=== PATIENT | male | born 1950 | race Caucasian/White ===

== ENCOUNTER 2018-02-20 06:21 | Day surgery (SDC) | payer MEDICARE, OTHER ==
[2018-02-20] MEDS: Sodium Chloride 0.9% 1,000 ML IV SCH (06:51)
[2018-02-20] MEDS ORDERED: fentaNYL 250 MCG/5 ML SDV ONE ×2 (07:26→08:01)
[2018-02-20] MEDS ORDERED: Ketorolac 60 MG/2 ML SDV ONE (08:03)
[2018-02-20] MEDS ORDERED: Scopolamine 1.5 MG Transdermal Patch ONE (08:22)
[2018-02-20] MEDS: ceFAZolin 2 GM in Sodium Chloride 0.9% 50 ML IV ONE (08:29)
[2018-02-20] MEDS: metroNIDAZOLE/Normal Saline 500 MG in Premix Bag 1 BAG IV ONE (08:29)
[2018-02-20] MEDS: Ropivacaine 43 ML, Dexamethasone 8 MG, EPINEPHrine 0.4 MG, Sodium Chloride 0.9% 34.6 ML NERVRT SCH ×4 (08:31)
[2018-02-20] MEDS: Lidocaine 1% with EPINEPHrine 1:100,000 50 ML MDV ONE (08:43)
[2018-02-20] MEDS: Bupivacaine 0.5% 50 ML MDV ONE (08:43)
[2018-02-20] MEDS ORDERED: Glycopyrrolate 0.2 MG/ML 5 ML MDV ONE (09:00)
[2018-02-20] MEDS ORDERED: Neostigmine Methylsulfate 1 MG/ML 5 ML Syringe ONE (09:00)
[2018-02-20] MEDS ORDERED: Rocuronium 50 MG/5 ML Vial ONE (09:00)
[2018-02-20] MEDS ORDERED: Dexamethasone 4 MG/ML SDV ONE (09:00)
[2018-02-20] MEDS ORDERED: Ondansetron 4 MG/2 ML SDV ONE (09:00)
[2018-02-20] MEDS ORDERED: Propofol 200 MG/20 ML SDV ONE (09:00)
[2018-02-20 10:20] VITALS: BP 151/91
[2018-02-20] MEDS: Acetaminophen/HYDROcodone 325-5 MG Tab PO ONE (10:20)
--- NOTE | 2018-02-20 13:20 | OR ---
DATE OF PROCEDURE: 02/20/2018 PROCEDURE: Transverse abdominoperitoneal plane block. COMPLICATIONS: None. SCRAP WHEELER: None. PREOPERATIVE DIAGNOSIS: Requirement for abdominal surgery. POSTOPERATIVE DIAGNOSIS: Requirement for abdominal surgery. RISKS: Risks, benefits, alternatives, and limitations including, but not limited to infection, bleeding, injury to abdominal structures such as perforation of intestines or blood vessels along with hematoma were explained to the patient. They understand these risks and wished to proceed. PROCEDURE IN DETAIL: The patient was placed in supine position. Using 11 megahertz ultrasound, the right abdomen was prepped first. Between the second and third layers, the correct plane was identified. A test dose was injected after being drawn back to ensure intravascular injection was not noted. Approximately 90% of the solution was then injected under direct ultrasound guidance. The same procedure was performed in the same manner, same fashion, same technique, in the same sequence, and using the same equipment, also under ultrasound guidance. The patient tolerated the procedure well. Flavio Osman MD /[id number]
--- NOTE | 2018-02-20 13:23 | OR ---
DATE OF PROCEDURE: 02/20/2018 PROCEDURE: Total extraperitoneal hernia repair, right. COMPLICATIONS: None. BENCH ASSEMBLER BATTERY: None. ANESTHESIA: TAP block/general. RISKS: Risks, benefits, alternatives, and limitations including, but not limited to infection, bleeding, and perforation were explained to the patient, and they wished to proceed. PROCEDURE IN DETAIL: The patient was placed in supine position. Infraumbilically, a vertical incision was made approximately 1.5 cm in size. Using [place] and electrocautery, this was carried down to the anterior fascia. This was opened sharply. The preperitoneal space was identified and was developed with a peon dissector. The dissecting balloon was then introduced and advanced toward the right side of the pubic symphysis. This was then pumped approximately 30 times and pressure was held for 1 minute under direct visualization. The dissecting balloon was then removed. The preperitoneal space was subsequently deflated. No evidence of injury, peritoneal rent, or bleeding was noted during this introduction. Two additional 3 mm ports were also entered under direct visualization. Dissection began in standard fashion, lateral to medial. This was in the avascular plane and was developed without difficulty. The patient had a large indirect hernia. This was then dissected bluntly over the course of the, next, approximately 20 minutes. The cord structures were identified and re-verified multiple times. At no point were the cord structures involved or interacted with, aside from the intermittent verification of location. Also, of note, the "triangle of doom" and the "triangle of pain" were not interacted with in any way during this procedure. Once the dissection was completed, the patient also had a cord lipoma, and this was dissected. The classic anatomical lymphatic type fat was not dissected. This was then verified for bleeding and none was noted. The dissection technique was again verified without any additional dissection needed. The mesh was cut to a curve and introduced. This would be centered directly over the hernia defect itself. This would overlap the pubic symphysis and will be unrolled in a classic 4-to-1 unwrapping. Position was checked several times. As the air was desufflated, the mesh was held into place. There was a small peritoneal tear, which previously had been repaired with 5 mm clips. The remaining air was removed. The wounds were irrigated and closed with 3-0 and 4- 0 Vicryl. Dermabond was applied. The patient tolerated the procedure well. Flavio Osman MD /[id number]
[2018-02-21] MEDS ORDERED: Sodium Chloride 0.9% 10 ML Syringe FLUSH PRN (13:13)
[2018-02-21] MEDS ORDERED: Iopamidol 612 MG/ML 150 ML Bottle IV SCH (13:15)
== END 2018-02-20 10:50 | disposition home or self-care (01) ==
LOC: JP.SDS 06:21
PROVIDERS: ATTEND Surgery
DX: K40.90 Unilateral inguinal hernia, without obstruction or gangrene, not specified as recurrent (principal); D17.6 Benign lipomatous neoplasm of spermatic cord; Z88.8 Allergy status to other drugs, medicaments and biological substances
CPT/HCPCS: A9270-GY; C1781; J0171; J0690; J1100; J1885; J2405; J2704; J2710; J2795; J3010; J3490; J7030; J7050

== ENCOUNTER 2018-03-03 18:29 | Inpatient (IN) | payer MEDICARE, OTHER ==
[2018-03-03] MEDS ORDERED: Sodium Chloride 0.9% 10 ML Syringe FLUSH PRN (18:50)
[2018-03-03] MEDS ORDERED: Lidocaine 2% Jelly 10 ML Urojet ONE (18:53)
[2018-03-03] MEDS ORDERED: Lidocaine 2% Jelly 10 ML Urojet MUCMEM ONE (18:57)
[2018-03-03] MEDS ORDERED: Sodium Chloride 0.9% 1,000 ML IV ONE (19:11)
[2018-03-03] MEDS ORDERED: Acetaminophen 500 MG Tab PO ONE (19:11)
[2018-03-03] MEDS ORDERED: Ketorolac 30 MG/ML SDV IVPUSH ONE (19:53)
[2018-03-03] MEDS ORDERED: Ciprofloxacin in D5W 400 MG in Premix Bag 1 BAG IV SCH ×2 (21:15)
[2018-03-03] MEDS ORDERED: Zolpidem 5 MG Tab PO PRN (21:18)
--- NOTE | 2018-03-03 21:47 | EDM.PDOC ---
ED HPI GENERAL MEDICAL PROBLEM - General Chief Complaint: General Stated Complaint: ILLNESS Time Seen by Provider: 03/03/18 18:36 Source of Information: Reports: Patient History Limitations: Reports: No Limitations - History of Present Illness INITIAL COMMENTS - FREE TEXT/NARRATIVE: This patient had hernia surgery about a week ago. He's had a pompa cath most of the time since then. Did see urologist It was changed recently and then he was switched to self cath today. About noon he began having chills which have progressed. Rigors became so bad that he was not able to cath himself at 6 pm. No other symptoms. He had been taking macrodantin all week but today he took a bactrim tab. He's also been on pyridium. - Related Data Allergies Allergy/AdvReac Type Severity Reaction Status Date / Time scopolamine Allergy Hallucinati Verified 03/03/18 18:40 ons simvastatin AdvReac Anxiety Verified 03/03/18 18:39 Home Meds: Home Meds Aspirin [Halfprin] 81 mg PO DAILY 09/09/14 [History] atorvaSTATin [Lipitor] 40 mg PO DAILY 09/09/14 [History] Sildenafil Citrate [Sildenafil] 100 mg PO ASDIRECTED PRN 02/18/18 [History] Zolpidem Tartrate [Ambien] 5 mg PO BEDTIME PRN 02/18/18 [History] Sulfamethoxazole/Trimethoprim [Sulfamethoxazole-Tmp Ds Tablet] 1 tab PO BID [History] Tamsulosin HCl 1 tab PO DAILY 03/03/18 [History] Past Medical History HEENT History: Reports: Hard of Hearing, Impaired Vision Cardiovascular History: Reports: High Cholesterol Gastrointestinal History: Reports: Colon Polyp, Other (See Below) Other Gastrointestinal History: Right inguinal hernia Genitourinary History: Reports: Other (See Below) Other Genitourinary History: large prostate Musculoskeletal History: Reports: Fracture - Infectious Disease History Infectious Disease History: Reports: Chicken Pox, Measles, Mumps - Past Surgical History HEENT Surgical History: Reports: LASIK GI Surgical History: Reports: Colonoscopy, EGD, Hernia, Inguinal Social & Family History - Tobacco Use Smoking Status *Q: Never Smoker - Caffeine Use Caffeine Use: Reports: Coffee, Soda - Alcohol Use Days Per Week of Alcohol Use: 3 Number of Drinks Per Day: 3 Total Drinks Per Week: 9 - Recreational Drug Use Recreational Drug Use: No ED ROS GENERAL - Review of Systems Review Of Systems: See Below Constitutional: Reports: Fever, Chills HEENT: Reports: No Symptoms Respiratory: Reports: No Symptoms Cardiovascular: Reports: No Symptoms Endocrine: Reports: No Symptoms GI/Abdominal: Reports: No Symptoms : Reports: Flank Pain Musculoskeletal: Reports: No Symptoms Skin: Reports: No Symptoms Neurological: Reports: No Symptoms ED EXAM, GENERAL - Physical Exam Exam: See Below Exam Limited By: No Limitations General Appearance: Alert, WD/WN, No Apparent Distress Eye Exam: Bilateral Eye: EOMI, PERRL Ears: Normal TMs Nose: Normal Inspection Throat/Mouth: Normal Oropharynx Head: Atraumatic Neck: Supple Respiratory/Chest: Lungs Clear Cardiovascular: Regular Rate, Rhythm, No Murmur GI/Abdominal: Normal Bowel Sounds, Soft, Non-Tender, No Distention, No Mass, Other (bladder not palpable) (Male) Exam: Other (Had about 300 ml urine when pompa inserted) Back Exam: No: CVA Tenderness (R), CVA Tenderness (L) Extremities: Normal Inspection Neurological: Alert, Oriented Psychiatric: Normal Affect Skin Exam: Warm, Dry Course - Vital Signs Last Recorded V/S: Last Vital Signs Temp 38.2 C H 03/03/18 21:17 Pulse 104 H 03/03/18 21:17 Resp 16 03/03/18 21:17 BP 107/63 03/03/18 21:17 Pulse Ox 92 L 03/03/18 21:17 - Orders/Labs/Meds Orders: Active Orders 24 hr Category Date Time Status Patient Status Manage Transfer [TRANSFER] Routine ADT 03/03/18 21:18 Active Patient Status [ADT] Routine ADT 03/03/18 21:04 Active Insert Pompa Catheter [Insert Urinary Catheter] [OM.PC] Care 03/03/18 19:15 Ordered Q24H Intake and Output [RC] QSHIFT Care 03/03/18 21:05 Active Oxygen Therapy [RC] PRN Care 03/03/18 21:04 Active Up With Assistance [RC] ASDIRECTED Care 03/03/18 21:04 Active Urinary Catheter Assessment [RC] ASDIRECTED Care 03/03/18 19:27 Active Urinary Catheter Assessment [RC] ASDIRECTED Care 03/03/18 21:04 Active VTE/DVT Education [RC] Per Unit Routine Care 03/03/18 21:04 Active Vital Signs [RC] Q4H Care 03/03/18 21:04 Active Regular Diet [DIET] Diet 03/03/18 Breakfast Active Chest 2V [CR] Urgent Exams 03/03/18 19:48 Taken CBC WITH AUTO DIFF [HEME] AM Lab 03/04/18 05:11 Ordered COMPREHENSIVE METABOLIC PN,CMP [CHEM] AM Lab 03/04/18 05:11 Ordered CULTURE BLOOD [BC] Urgent Lab 03/03/18 18:54 Received CULTURE BLOOD [BC] Urgent Lab 03/03/18 19:10 Received CULTURE URINE [RM] Stat Lab 03/03/18 20:00 Received HUMAN GRANULOCYTIC ADAM-HGE Stat Lab 03/03/18 19:00 Received LYME, TOTAL AB TEST/REFLEX Stat Lab 03/03/18 19:00 Received UA W/MICROSCOPIC [URIN] Urgent Lab 03/03/18 19:25 Ordered Acetaminophen [Tylenol] Med 03/03/18 21:04 Active 650 mg PO Q4H PRN Ciprofloxacin in D5W [Cipro in D5W 400 MG/200 ML] 400 Med 03/03/18 21:15 Active mg Premix Bag 1 bag IV Q12H Sodium Chloride 0.9% [Normal Saline] 1,000 ml Med 03/03/18 21:15 Active IV ASDIRECTED Sodium Chloride 0.9% [Saline Flush] Med 03/03/18 18:50 Active 10 ml FLUSH ASDIRECTED PRN Tamsulosin [Flomax] Med 03/04/18 09:00 Active 0.4 mg PO DAILY Zolpidem [Ambien] Med 03/03/18 21:18 Active 5 mg PO BEDTIME PRN atorvaSTATin [Lipitor] Med 03/04/18 09:00 Active 40 mg PO DAILY Blood Culture x2 Reflex Set [OM.PC] Urgent Oth 03/03/18 18:50 Ordered Saline Lock Insert [OM.PC] Urgent Oth 03/03/18 18:49 Ordered Resuscitation Status Routine Resus Stat 03/03/18 21:04 Ordered Medication Orders Acetaminophen (Tylenol) 650 mg PO Q4H PRN PRN Reason: Pain (Mild 1-3)/fever Atorvastatin Calcium (Lipitor) 40 mg PO DAILY ARSLAN Sodium Chloride (Normal Saline) 1,000 mls @ 250 mls/hr IV ASDIRECTED ARSLAN Ciprofloxacin/Dextrose 400 mg/ (Premix) 200 mls @ 200 mls/hr IV Q12H ARSLAN Sodium Chloride (Saline Flush) 10 ml FLUSH ASDIRECTED PRN PRN Reason: Keep Vein Open Last Admin: 03/03/18 20:04 Dose: 10 ml Tamsulosin HCl (Flomax) 0.4 mg PO DAILY ARSLAN Zolpidem Tartrate (Ambien) 5 mg PO BEDTIME PRN PRN Reason: Insomnia Labs: Laboratory Tests 03/03/18 03/03/18 03/03/18 Range/Units 18:49 19:10 19:10 WBC 12.4 H (4.5-11.0) K/uL RBC 4.91 (4.30-5.90) M/uL Hgb 14.9 (12.0-15.0) g/dL Hct 43.1 (40.0-54.0) % MCV 88 (80-98) fL MCH 30 (27-31) pg MCHC 35 (32-36) % Plt Count 266 (150-400) K/uL Neut % (Auto) 91 H (36-66) % Lymph % (Auto) 6 L (24-44) % [place] % (Auto) 3 (2-6) % Eos % (Auto) 0 L (2-4) % Baso % (Auto) 0 (0-1) % Sodium 132 L (140-148) mmol/L Potassium 3.5 L (3.6-5.2) mmol/L Chloride 98 L (100-108) mmol/L Carbon Dioxide 21 (21-32) mmol/L Anion Gap 16.5 H (5.0-14.0) mmol/L BUN 19 H (7-18) mg/dL Creatinine 1.2 (0.8-1.3) mg/dL Est Cr Clr Drug Dosing 60.55 mL/min Estimated GFR (MDRD) > 60 (>60) Glucose 138 H (74-106) mg/dL Lactic Acid 2.4 H (0.4-2.0) mmol/L Calcium 8.5 (8.5-10.1) mg/dL Total Bilirubin 1.2 H (0.2-1.0) mg/dL AST 97 H (15-37) U/L ALT 103 H (12-78) U/L Alkaline Phosphatase 249 H (46-116) U/L Total Protein 7.2 (6.4-8.2) g/dL Albumin 3.1 L (3.4-5.0) g/dL Globulin 4.1 H (2.3-3.5) g/dL Albumin/Globulin Ratio 0.8 L (1.2-2.2) Amylase (25-115) U/L Lipase (73-393) U/L Urine Color Urine Appearance Urine pH (4.5-8.0) Ur Specific [place] (1.008-1.030) Urine Protein (NEGATIVE) mg/dL Urine Glucose (UA) (NEGATIVE) mg/dL Urine Ketones (NEGATIVE) mg/dL Urine Occult Blood (NEGATIVE) Urine Nitrite (NEGAITVE) Urine Bilirubin (NEGATIVE) Urine Urobilinogen (NORMAL) mg/dL Ur Leukocyte Esterase (NEGATIVE) Urine RBC (0-5) Urine WBC (0-5) Ur Epithelial Cells Amorphous Sediment Urine Bacteria Urine Mucus 03/03/18 03/03/18 Range/Units 19:25 20:06 WBC (4.5-11.0) K/uL RBC (4.30-5.90) M/uL Hgb (12.0-15.0) g/dL Hct (40.0-54.0) % MCV (80-98) fL MCH (27-31) pg MCHC (32-36) % Plt Count (150-400) K/uL Neut % (Auto) (36-66) % Lymph % (Auto) (24-44) % [place] % (Auto) (2-6) % Eos % (Auto) (2-4) % Baso % (Auto) (0-1) % Sodium (140-148) mmol/L Potassium (3.6-5.2) mmol/L Chloride (100-108) mmol/L Carbon Dioxide (21-32) mmol/L Anion Gap (5.0-14.0) mmol/L BUN (7-18) mg/dL Creatinine (0.8-1.3) mg/dL Est Cr Clr Drug Dosing mL/min Estimated GFR (MDRD) (>60) Glucose (74-106) mg/dL Lactic Acid (0.4-2.0) mmol/L Calcium (8.5-10.1) mg/dL Total Bilirubin (0.2-1.0) mg/dL AST (15-37) U/L ALT (12-78) U/L Alkaline Phosphatase (46-116) U/L Total Protein (6.4-8.2) g/dL Albumin (3.4-5.0) g/dL Globulin (2.3-3.5) g/dL Albumin/Globulin Ratio (1.2-2.2) Amylase 45 (25-115) U/L Lipase 212 (73-393) U/L Urine Color [place] Urine Appearance Slightly cloudy Urine pH 5.0 (4.5-8.0) Ur Specific [place] 1.025 (1.008-1.030) Urine Protein 500 H (NEGATIVE) mg/dL Urine Glucose (UA) Normal (NEGATIVE) mg/dL Urine Ketones Negative (NEGATIVE) mg/dL Urine Occult Blood Trace (NEGATIVE) Urine Nitrite Positive H (NEGAITVE) Urine Bilirubin Moderate (NEGATIVE) Urine Urobilinogen 8 (NORMAL) mg/dL Ur Leukocyte Esterase Negative (NEGATIVE) Urine RBC 0-5 (0-5) Urine WBC 0-5 (0-5) Ur Epithelial Cells Not seen Amorphous Sediment Not seen Urine Bacteria Moderate Urine Mucus Few Meds: Medications Generic Name Dose Route Start Last Admin Trade Name Freq PRN Reason Stop Dose Admin Acetaminophen 650 mg 03/03/18 21:04 Tylenol PO Q4H PRN Pain (Mild 1-3)/fever Atorvastatin Calcium 40 mg 03/04/18 09:00 Lipitor PO DAILY ARSLAN Sodium Chloride 1,000 mls @ 250 mls/hr 03/03/18 21:15 Normal Saline IV ASDIRECTED ARSLAN Ciprofloxacin/Dextrose 400 mg/ 200 mls @ 200 mls/hr 03/03/18 21:15 Premix IV Q12H ARSLAN Sodium Chloride 10 ml 03/03/18 18:50 03/03/18 20:04 Saline Flush FLUSH 10 ml ASDIRECTED PRN Administration Keep Vein Open Tamsulosin HCl 0.4 mg 03/04/18 09:00 Flomax PO DAILY ARSLAN Zolpidem Tartrate 5 mg 03/03/18 21:18 Ambien PO BEDTIME PRN Insomnia Discontinued Medications Generic Name Dose Route Start Last Admin Trade Name Freq PRN Reason Stop Dose Admin Acetaminophen 1,000 mg 03/03/18 19:11 03/03/18 19:24 Tylenol Extra Strength PO 03/03/18 19:12 1,000 mg ONETIME ONE Administration Sodium Chloride 1,000 mls @ 999 mls/hr 03/03/18 19:11 03/03/18 19:00 Normal Saline IV 03/03/18 20:11 999 mls/hr .BOLUS ONE Administration Ketorolac Tromethamine 30 mg 03/03/18 19:53 03/03/18 19:58 Toradol IVPUSH 03/03/18 19:54 30 mg ONETIME ONE Administration Lidocaine HCl Confirm 03/03/18 18:53 03/03/18 19:51 Xylocaine 2% Jelly Administered 03/03/18 18:54 Not Given Dose 10 ml .ROUTE .STK-MED ONE Lidocaine HCl 10 ml 03/03/18 18:57 03/03/18 19:25 Xylocaine 2% Jelly MUCMEM 03/03/18 18:58 10 ml ONETIME ONE Administration - Radiology Interpretation Free Text/Narrative:: CXR normal heart size and lung markings. - Re-Assessments/Exams Free Text/Narrative Re-Assessment/Exam: 03/03/18 21:48 Labs noted. Plenty of bacteria in urine. + Nitrite could be from Pyridium. 0-5 WBC's not convincing but doesn't rule out UTI/Pyelo Discussed with Dr Rivero who will admit him. All aware of LFT's. Departure - Departure Time of Disposition: 21:50 Disposition: Admitted As Inpatient 68 Condition: Fair Clinical Impression: Sepsis due to urinary tract infection - Discharge Information Referrals: Lul Askew MD [Primary Care Provider] - - My Orders Last 24 Hours: My Active Orders 03/03/18 18:49 Saline Lock Insert [OM.PC] Urgent 03/03/18 18:50 Sodium Chloride 0.9% [Saline Flush] 10 ml FLUSH ASDIRECTED PRN Blood Culture x2 Reflex Set [OM.PC] Urgent 03/03/18 18:54 CULTURE BLOOD [BC] Urgent 03/03/18 19:10 CULTURE BLOOD [BC] Urgent 03/03/18 19:15 Insert Pompa Catheter [Insert Urinary Catheter] [OM.PC] Q24H 03/03/18 19:25 UA W/MICROSCOPIC [URIN] Urgent 03/03/18 19:27 Urinary Catheter Assessment [RC] ASDIRECTED 03/03/18 19:48 Chest 2V [CR] Urgent - Assessment/Plan Last 24 Hours: My Active Orders 03/03/18 18:49 Saline Lock Insert [OM.PC] Urgent 03/03/18 18:50 Sodium Chloride 0.9% [Saline Flush] 10 ml FLUSH ASDIRECTED PRN Blood Culture x2 Reflex Set [OM.PC] Urgent 03/03/18 18:54 CULTURE BLOOD [BC] Urgent 03/03/18 19:10 CULTURE BLOOD [BC] Urgent 03/03/18 19:15 Insert Pompa Catheter [Insert Urinary Catheter] [OM.PC] Q24H 03/03/18 19:25 UA W/MICROSCOPIC [URIN] Urgent 03/03/18 19:27 Urinary Catheter Assessment [RC] ASDIRECTED 03/03/18 19:48 Chest 2V [CR] Urgent
[2018-03-03] MEDS: Sodium Chloride 0.9% 1,000 ML IV SCH (21:58)
[2018-03-04] MEDS: Sodium Chloride 0.9% 1,000 ML IV SCH ×3 (02:00→10:38)
--- NOTE | 2018-03-04 04:58 | HP ---
CHIEF COMPLAINT: Fever and chills. HISTORY OF PRESENT ILLNESS: This is a 68-year-old who had a right inguinal hernia repair at [facility] over a week ago. He had significant problems after the surgery, not able to void. Bladder getting distended. Had a Arriola placed and was removed the next day, but had to be replaced again and had the catheter in until today when he saw Urology in [place]. They removed the catheter, taught him on self catheterization. For BPH, he has been started on Flomax, but just for the last couple days. He started running a little bit of fever a couple days ago. Initially, started on Bactrim, but then started having back pain and then switched to nitrofurantoin, but his fever worsened today with chills and rigors, just not feeling well, came into the emergency room for further evaluation and was evaluated by emergency room physician. Did have a little bit of blood and white cells in his urine, but not as high as expected, although he did have bacteria and positive nitrites. The patient did have a Arriola catheter placed back in. He did have blood in his urine, but did have immediate improvement of his symptoms, so admitted the patient for further evaluation and treatment. The patient denies any nausea or vomiting. No chest pain or trouble breathing. It sounds like his hernia surgery on the right inguinal area went well. Denies any swelling in his legs. No skin problems reported. PAST MEDICAL HISTORY: Right inguinal hernia repair. He has had hyperlipidemia and some insomnia. ALLERGIES: SCOPOLAMINE, HALLUCINATES AND SIMVASTATIN, FEELS CLAUSTROPHOBIC. MEDICATIONS: Aspirin 81 mg daily, although today he did take 3 or 4 for his fever; atorvastatin 40 mg daily; sildenafil p.r.n.; Flomax 0.4 mg daily; zolpidem 5 mg at bedtime p.r.n. He has been on Bactrim and then possibly on Macrobid, but I do not see of that on his med list. SOCIAL HISTORY: Nonsmoker. FAMILY HISTORY: Noncontributory. REVIEW OF SYSTEMS: As above. OBJECTIVE: VITAL SIGNS: Temp initially 40.6, now is 40.4; pulse 134; blood pressure 163/89; respirations 20; O2 saturation 95% on room air; weight 83 kg. HEENT: Pharynx is clear. Mucous membranes are moist. NECK: Supple. No adenopathy, thyromegaly, JVD, or bruits. LUNGS: Clear. HEART: Regular without murmurs. ABDOMEN: Soft. Mild suprapubic discomfort, but better since he has a Arriola catheter placed. He does have laparoscopic sites from his recent surgery. There is no redness or drainage coming from them. No mass or organomegaly palpated. EXTREMITIES: No edema. SKIN: Negative. ASSESSMENT: Fever with appearance of sepsis, although he looked better than when he 1st came in after Arriola catheter was placed with his recent history of urine source definitely likely, although his urine really does not look significantly abnormal with normal white cells, but if he has been on antibiotics recently, that may be affecting the results. We will put him on IV Cipro. He is out in the [place]ias quite a bit and has been doing some work outside and with his high fever and elevated liver enzymes, question if he would have a tick illness, so we will check for this also. I did start him on IV ciprofloxacin and IV fluids, and transfer his care to the hospitalist service in the morning. Gainfranco Rivero MD /[id number]
--- NOTE | 2018-03-04 08:27 | CR ---
CHEST: 2 view CLINICAL HISTORY:Chest pain COMPARISON:None FINDINGS: Heart size and pulmonary vascularity are normal. There are atherosclerotic changes in the aorta.. Lung miller are clear . IMPRESSION: No acute cardiopulmonary process
[2018-03-04] MEDS ORDERED: Sodium Chloride 0.9% 100 ML IV SCH (09:45)
[2018-03-04] MEDS ORDERED: Iopamidol 612 MG/ML 100 ML Bottle IV SCH (09:45)
[2018-03-04] MEDS: Tamsulosin 0.4 MG Cap.ER PO SCH (10:39)
[2018-03-04] MEDS: atorvaSTATin 20 MG Tab PO SCH (10:39)
[2018-03-04] MEDS: Ciprofloxacin in D5W 400 MG in Premix Bag 1 BAG IV SCH ×4 (10:39→21:42)
--- NOTE | 2018-03-04 13:07 | PCM.PN ---
- General Info Date of Service: 03/04/18 Functional Status: Reports: Pain Controlled, Tolerating Diet - Review of Systems General: Reports: Fever Gastrointestinal: Denies: Abdominal Pain Systems Review Comment:: There were no acute events after admission. Temperature curve has improved after antibiotics were initiated. Patient feels a fair amount better today with improved energy. No complaints of abdominal pain. Hematuria noted at the time of presentation has been decreasing. Blood cultures did return positive for gram -negative rods. - Patient Data Vitals - Most Recent: Last Vital Signs Temp 35.5 C 03/04/18 11:59 Pulse 81 03/04/18 11:59 Resp 18 03/04/18 11:59 BP 126/62 03/04/18 11:59 Pulse Ox 97 03/04/18 11:59 Weight - Most Recent: 83.915 kg I&O - Last 24 Hours: Intake & Output 03/03/18 03/04/18 03/04/18 22:59 06:59 14:59 Intake Total 950 1963 100 Output Total 1150 Balance 950 813 100 Lab Results Last 24 Hours: Laboratory Results - last 24 hr 03/03/18 03/03/18 03/03/18 Range/Units 18:49 19:10 19:10 WBC 12.4 H (4.5-11.0) K/uL RBC 4.91 (4.30-5.90) M/uL Hgb 14.9 (12.0-15.0) g/dL Hct 43.1 (40.0-54.0) % MCV 88 (80-98) fL MCH 30 (27-31) pg MCHC 35 (32-36) % Plt Count 266 (150-400) K/uL Neut % (Auto) 91 H (36-66) % Lymph % (Auto) 6 L (24-44) % Tucker % (Auto) 3 (2-6) % Eos % (Auto) 0 L (2-4) % Baso % (Auto) 0 (0-1) % Sodium 132 L (140-148) mmol/L Potassium 3.5 L (3.6-5.2) mmol/L Chloride 98 L (100-108) mmol/L Carbon Dioxide 21 (21-32) mmol/L Anion Gap 16.5 H (5.0-14.0) mmol/L BUN 19 H (7-18) mg/dL Creatinine 1.2 (0.8-1.3) mg/dL Est Cr Clr Drug Dosing 60.55 mL/min Estimated GFR (MDRD) > 60 (>60) Glucose 138 H (74-106) mg/dL Lactic Acid 2.4 H (0.4-2.0) mmol/L Calcium 8.5 (8.5-10.1) mg/dL Total Bilirubin 1.2 H (0.2-1.0) mg/dL AST 97 H (15-37) U/L ALT 103 H (12-78) U/L Alkaline Phosphatase 249 H (46-116) U/L Total Protein 7.2 (6.4-8.2) g/dL Albumin 3.1 L (3.4-5.0) g/dL Globulin 4.1 H (2.3-3.5) g/dL Albumin/Globulin Ratio 0.8 L (1.2-2.2) Amylase (25-115) U/L Lipase (73-393) U/L Urine Color Urine Appearance Urine pH (4.5-8.0) Ur Specific [place] (1.008-1.030) Urine Protein (NEGATIVE) mg/dL Urine Glucose (UA) (NEGATIVE) mg/dL Urine Ketones (NEGATIVE) mg/dL Urine Occult Blood (NEGATIVE) Urine Nitrite (NEGAITVE) Urine Bilirubin (NEGATIVE) Urine Urobilinogen (NORMAL) mg/dL Ur Leukocyte Esterase (NEGATIVE) Urine RBC (0-5) Urine WBC (0-5) Ur Epithelial Cells Amorphous Sediment Urine Bacteria Urine Mucus 03/03/18 03/03/18 03/04/18 Range/Units 19:25 20:06 04:20 WBC 13.4 H (4.5-11.0) K/uL RBC 4.01 L (4.30-5.90) M/uL Hgb 12.0 D (12.0-15.0) g/dL Hct 36.0 L (40.0-54.0) % MCV 90 (80-98) fL MCH 30 (27-31) pg MCHC 33 (32-36) % Plt Count 210 (150-400) K/uL Neut % (Auto) 78 H (36-66) % Lymph % (Auto) 8 L (24-44) % Tucker % (Auto) 13 H (2-6) % Eos % (Auto) 1 L (2-4) % Baso % (Auto) 0 (0-1) % Sodium (140-148) mmol/L Potassium (3.6-5.2) mmol/L Chloride (100-108) mmol/L Carbon Dioxide (21-32) mmol/L Anion Gap (5.0-14.0) mmol/L BUN (7-18) mg/dL Creatinine (0.8-1.3) mg/dL Est Cr Clr Drug Dosing mL/min Estimated GFR (MDRD) (>60) Glucose (74-106) mg/dL Lactic Acid (0.4-2.0) mmol/L Calcium (8.5-10.1) mg/dL Total Bilirubin (0.2-1.0) mg/dL AST (15-37) U/L ALT (12-78) U/L Alkaline Phosphatase (46-116) U/L Total Protein (6.4-8.2) g/dL Albumin (3.4-5.0) g/dL Globulin (2.3-3.5) g/dL Albumin/Globulin Ratio (1.2-2.2) Amylase 45 (25-115) U/L Lipase 212 (73-393) U/L Urine Color [place] Urine Appearance Slightly cloudy Urine pH 5.0 (4.5-8.0) Ur Specific [place] 1.025 (1.008-1.030) Urine Protein 500 H (NEGATIVE) mg/dL Urine Glucose (UA) Normal (NEGATIVE) mg/dL Urine Ketones Negative (NEGATIVE) mg/dL Urine Occult Blood Trace (NEGATIVE) Urine Nitrite Positive H (NEGAITVE) Urine Bilirubin Moderate (NEGATIVE) Urine Urobilinogen 8 (NORMAL) mg/dL Ur Leukocyte Esterase Negative (NEGATIVE) Urine RBC 0-5 (0-5) Urine WBC 0-5 (0-5) Ur Epithelial Cells Not seen Amorphous Sediment Not seen Urine Bacteria Moderate Urine Mucus Few 03/04/18 Range/Units 04:20 WBC (4.5-11.0) K/uL RBC (4.30-5.90) M/uL Hgb (12.0-15.0) g/dL Hct (40.0-54.0) % MCV (80-98) fL MCH (27-31) pg MCHC (32-36) % Plt Count (150-400) K/uL Neut % (Auto) (36-66) % Lymph % (Auto) (24-44) % Tucker % (Auto) (2-6) % Eos % (Auto) (2-4) % Baso % (Auto) (0-1) % Sodium 136 L (140-148) mmol/L Potassium 4.0 (3.6-5.2) mmol/L Chloride 104 (100-108) mmol/L Carbon Dioxide 24 (21-32) mmol/L Anion Gap 12.0 (5.0-14.0) mmol/L BUN 22 H (7-18) mg/dL Creatinine 1.1 (0.8-1.3) mg/dL Est Cr Clr Drug Dosing 66.06 mL/min Estimated GFR (MDRD) > 60 (>60) Glucose 114 H (74-106) mg/dL Lactic Acid (0.4-2.0) mmol/L Calcium 8.0 L (8.5-10.1) mg/dL Total Bilirubin 0.7 (0.2-1.0) mg/dL AST 67 H (15-37) U/L ALT 79 H (12-78) U/L Alkaline Phosphatase 202 H (46-116) U/L Total Protein 5.6 L (6.4-8.2) g/dL Albumin 2.2 L (3.4-5.0) g/dL Globulin 3.4 (2.3-3.5) g/dL Albumin/Globulin Ratio 0.7 L (1.2-2.2) Amylase (25-115) U/L Lipase (73-393) U/L Urine Color Urine Appearance Urine pH (4.5-8.0) Ur Specific [place] (1.008-1.030) Urine Protein (NEGATIVE) mg/dL Urine Glucose (UA) (NEGATIVE) mg/dL Urine Ketones (NEGATIVE) mg/dL Urine Occult Blood (NEGATIVE) Urine Nitrite (NEGAITVE) Urine Bilirubin (NEGATIVE) Urine Urobilinogen (NORMAL) mg/dL Ur Leukocyte Esterase (NEGATIVE) Urine RBC (0-5) Urine WBC (0-5) Ur Epithelial Cells Amorphous Sediment Urine Bacteria Urine Mucus Rudi Results Last 24 Hours: Microbiology 03/03/18 19:10 Aerobic Blood Culture - Preliminary Blood - Arm, Right Anaerobic Blood Culture - Preliminary Med Orders - Current: Current Medications Acetaminophen (Tylenol) 650 mg PO Q4H PRN PRN Reason: Pain (Mild 1-3)/fever Atorvastatin Calcium (Lipitor) 40 mg PO DAILY [facility] Last Admin: 03/04/18 10:39 Dose: 40 mg Sodium Chloride (Normal Saline) 1,000 mls @ 250 mls/hr IV ASDIRECTED [facility] Last Admin: 03/04/18 10:38 Dose: 250 mls/hr Ciprofloxacin/Dextrose 400 mg/ (Premix) 200 mls @ 200 mls/hr IV Q12H [facility] Last Admin: 03/04/18 10:39 Dose: 200 mls/hr Sodium Chloride (Saline Flush) 10 ml FLUSH ASDIRECTED PRN PRN Reason: Keep Vein Open Last Admin: 03/03/18 20:04 Dose: 10 ml Tamsulosin HCl (Flomax) 0.4 mg PO DAILY [facility] Last Admin: 03/04/18 10:39 Dose: 0.4 mg Zolpidem Tartrate (Ambien) 5 mg PO BEDTIME PRN PRN Reason: Insomnia Discontinued Medications Acetaminophen (Tylenol Extra Strength) 1,000 mg PO ONETIME ONE Stop: 03/03/18 19:12 Last Admin: 03/03/18 19:24 Dose: 1,000 mg Sodium Chloride (Normal Saline) 1,000 mls @ 999 mls/hr IV .BOLUS ONE Stop: 03/03/18 20:11 Last Admin: 03/03/18 19:00 Dose: 999 mls/hr Ciprofloxacin/Dextrose 400 mg/ (Premix) 200 mls @ 200 mls/hr IV Q12H [facility] Last Admin: 03/03/18 21:59 Dose: 200 mls/hr Sodium Chloride (Normal Saline) 100 mls @ 3 mls/sec IV ASDIRECTED [facility] Stop: 03/04/18 13:00 Last Admin: 03/04/18 12:42 Dose: 3 mls/sec Iopamidol (Isovue-300 (61%)) 100 ml IV . DIRECTED [facility] Stop: 03/04/18 13:00 Last Admin: 03/04/18 12:41 Dose: 100 ml Ketorolac Tromethamine (Toradol) 30 mg IVPUSH ONETIME ONE Stop: 03/03/18 19:54 Last Admin: 03/03/18 19:58 Dose: 30 mg Lidocaine HCl (Xylocaine 2% Jelly) Confirm Administered Dose 10 ml .ROUTE .STK- MED ONE Stop: 03/03/18 18:54 Last Admin: 03/03/18 19:51 Dose: Not Given Lidocaine HCl (Xylocaine 2% Jelly) 10 ml MUCMEM ONETIME ONE Stop: 03/03/18 18:58 Last Admin: 03/03/18 19:25 Dose: 10 ml - Exam Quality Assessment: No: Supplemental Oxygen General: Alert, Oriented, Cooperative, No Acute Distress Lungs: Normal Respiratory Effort Cardiovascular: Regular Rate, Regular Rhythm GI/Abdominal Exam: Soft, No Distention Extremities: No Pedal Edema Psy/Mental Status: Alert, Normal Affect - Problem List Review Problem List Initiated/Reviewed/Updated: Yes - My Orders Last 24 Hours: My Active Orders 03/04/18 09:32 Abdomen Pelvis w Cont [CT] Routine 03/04/18 13:06 Convert IV to Saline Lock [OM.PC] Routine 03/05/18 05:00 CBC W/O DIFF,HEMOGRAM [HEME] Timed (1) COMPREHENSIVE METABOLIC PN,CMP [CHEM] Timed - Plan Plan:: ASSESSMENT AND PLAN - Complicated urinary tract infection - recent difficulties with urinary retention necessitating Arriola catheter placement and more recently intermittent self catheterization. Acute onset of high fever last night and now has positive blood cultures. Urine culture is pending. Clinically much improved today after some fluids and some antibiotics. CT scan showed improving hydronephrosis. Mild elevation of AST and ALT along with very high fever did raise some concern for tickborne disease though patient is much better with management of urinary tract infection. -Continue ciprofloxacin -Gentle IV fluids -Follow-up cultures -Follow-up tick panel results BPH with LUTS/obstruction - had not been a problem until recent surgery. Has Arriola catheter back in place. Was recently evaluated by urology. -Reassess catheter status tomorrow -Continue tamsulosin -Treat infection as above Maintenance issues - - DVT prophylaxis - ambulatory - GI prophylaxis - not indicated - Nutrition - regular diet - Arriola catheter - placed in the emergency room because of urinary retention Disposition - I would anticipate discharged home after the hospital stay Arturo Hassan M.D.
--- NOTE | 2018-03-04 14:54 | CT ---
CT abdomen and pelvis with contrast CLINICAL HISTORY: Fever, urinary retention COMPARISON: 21 February 2018. TECHNIQUE: Axial tomographic images are obtained from the dome of the diaphragm to the pubic symphysi s with IV contrast enhancement. No oral contrast was used. Auto dosage reduction and iterative recons truction techniques employed. FINDINGS: The lung bases show some minimal streaky density in the lingula which is decreased when com pared to prior study. The liver shows no mass or biliary dilatation. The gallbladder has a normal con tour. The spleen is borderline enlarged. The pancreas shows no mass or inflammatory change. The adren al glands appear normal bilaterally. The kidneys are mildly hydronephrotic. This is diminished somewh at since prior study. There is a small cyst in the lower pole of the right kidney. There is some mild perinephric stranding in both kidneys. This is similar to prior study Both ureters show mild fullnes s. This is diminished slightly since prior study. The aorta has a normal contour. There is no suspici ous retroperitoneal adenopathy. Patient has a right inguinal hernia. The inflammation is diminished s lori prior study. The bladder is severely thick-walled. There is a Arriola catheter in place. The prost ate is moderately enlarged. Patient has sigmoid diverticulosis without evidence of diverticulitis. IMPRESSION: Slight decrease in bilateral hydronephrosis and hydroureter Persistent moderate the bladder wall thickening. There is a Arriola catheter in place. Prostate is mode rately enlarged Decreased soft tissue swelling in the right inguinal hernia Diverticulosis without evidence of diverticulitis
[2018-03-04] MEDS ORDERED: Docusate Sodium 100 MG Cap PO ONE (15:00)
[2018-03-04] MEDS: Acetaminophen 325 MG Tab PO PRN ×2 (16:43→21:41)
[2018-03-05] MEDS: Acetaminophen 325 MG Tab PO PRN ×2 (02:26→17:10)
--- NOTE | 2018-03-05 09:23 | PCM.PN ---
- General Info Date of Service: 03/05/18 Functional Status: Reports: Pain Controlled, Tolerating Diet - Review of Systems General: Reports: Fever Gastrointestinal: Denies: Abdominal Pain Systems Review Comment:: Patient did have fever overnight but not as high as the night before. Continues to feel well with resolution of his back pain. Hematuria continues to improve and urine is light yellow today. He has 4 bottles of blood cultures with gram- negative rods. Urine culture not growing bacteria at this time. No abdominal pain or nausea. - Patient Data Vitals - Most Recent: Last Vital Signs Temp 37.7 C 03/05/18 07:00 Pulse 84 03/05/18 07:00 Resp 16 03/05/18 07:00 BP 137/80 03/05/18 07:00 Pulse Ox 95 03/05/18 07:00 Weight - Most Recent: 83.915 kg I&O - Last 24 Hours: Intake & Output 03/04/18 03/05/18 03/05/18 22:59 06:59 14:59 Intake Total 1440 600 Output Total 500 2000 Balance 940 -1400 Lab Results Last 24 Hours: Laboratory Results - last 24 hr 03/05/18 03/05/18 Range/Units 04:30 04:30 WBC 7.9 (4.5-11.0) K/uL RBC 4.06 L (4.30-5.90) M/uL Hgb 12.1 (12.0-15.0) g/dL Hct 36.6 L (40.0-54.0) % MCV 90 (80-98) fL MCH 30 (27-31) pg MCHC 33 (32-36) % Plt Count 233 (150-400) K/uL Sodium 133 L (140-148) mmol/L Potassium 3.6 (3.6-5.2) mmol/L Chloride 103 (100-108) mmol/L Carbon Dioxide 23 (21-32) mmol/L Anion Gap 10.6 (5.0-14.0) mmol/L BUN 13 (7-18) mg/dL Creatinine 1.1 (0.8-1.3) mg/dL Est Cr Clr Drug Dosing 65.84 mL/min Estimated GFR (MDRD) > 60 (>60) Glucose 173 H (74-106) mg/dL Calcium 8.0 L (8.5-10.1) mg/dL Total Bilirubin 0.5 (0.2-1.0) mg/dL AST 43 H (15-37) U/L ALT 64 (12-78) U/L Alkaline Phosphatase 223 H (46-116) U/L Total Protein 5.4 L (6.4-8.2) g/dL Albumin 2.2 L (3.4-5.0) g/dL Globulin 3.2 (2.3-3.5) g/dL Albumin/Globulin Ratio 0.7 L (1.2-2.2) Rudi Results Last 24 Hours: Microbiology 03/03/18 18:54 Aerobic Blood Culture - Preliminary Blood - Venous - Iv Start Anaerobic Blood Culture - Preliminary 03/03/18 19:10 Aerobic Blood Culture - Preliminary Blood - Arm, Right Anaerobic Blood Culture - Preliminary 03/03/18 20:00 Urine Culture - Preliminary Urine, Catheterized NO GROWTH AFTER 1 DAY Med Orders - Current: Current Medications Acetaminophen (Tylenol) 650 mg PO Q4H PRN PRN Reason: Pain (Mild 1-3)/fever Last Admin: 03/05/18 02:26 Dose: 650 mg Atorvastatin Calcium (Lipitor) 40 mg PO DAILY [facility] Last Admin: 03/04/18 10:39 Dose: 40 mg Docusate Sodium (Colace) 100 mg PO DAILY [facility] Ciprofloxacin/Dextrose 400 mg/ (Premix) 200 mls @ 200 mls/hr IV Q12H [facility] Last Admin: 03/04/18 21:42 Dose: 200 mls/hr Sodium Chloride (Saline Flush) 10 ml FLUSH ASDIRECTED PRN PRN Reason: Keep Vein Open Last Admin: 03/03/18 20:04 Dose: 10 ml Tamsulosin HCl (Flomax) 0.4 mg PO DAILY [facility] Last Admin: 03/04/18 10:39 Dose: 0.4 mg Zolpidem Tartrate (Ambien) 5 mg PO BEDTIME PRN PRN Reason: Insomnia Discontinued Medications Acetaminophen (Tylenol Extra Strength) 1,000 mg PO ONETIME ONE Stop: 03/03/18 19:12 Last Admin: 03/03/18 19:24 Dose: 1,000 mg Docusate Sodium (Colace) 100 mg PO DAILY ONE Stop: 03/04/18 15:01 Last Admin: 03/04/18 16:08 Dose: 100 mg Sodium Chloride (Normal Saline) 1,000 mls @ 999 mls/hr IV .BOLUS ONE Stop: 03/03/18 20:11 Last Admin: 03/03/18 19:00 Dose: 999 mls/hr Sodium Chloride (Normal Saline) 1,000 mls @ 250 mls/hr IV ASDIRECTED [facility] Last Admin: 03/04/18 10:38 Dose: 250 mls/hr Ciprofloxacin/Dextrose 400 mg/ (Premix) 200 mls @ 200 mls/hr IV Q12H [facility] Last Admin: 03/03/18 21:59 Dose: 200 mls/hr Sodium Chloride (Normal Saline) 100 mls @ 3 mls/sec IV ASDIRECTED [facility] Stop: 03/04/18 13:00 Last Admin: 03/04/18 12:42 Dose: 3 mls/sec Iopamidol (Isovue-300 (61%)) 100 ml IV . DIRECTED [facility] Stop: 03/04/18 13:00 Last Admin: 03/04/18 12:41 Dose: 100 ml Ketorolac Tromethamine (Toradol) 30 mg IVPUSH ONETIME ONE Stop: 03/03/18 19:54 Last Admin: 03/03/18 19:58 Dose: 30 mg Lidocaine HCl (Xylocaine 2% Jelly) Confirm Administered Dose 10 ml .ROUTE .STK- MED ONE Stop: 03/03/18 18:54 Last Admin: 03/03/18 19:51 Dose: Not Given Lidocaine HCl (Xylocaine 2% Jelly) 10 ml MUCMEM ONETIME ONE Stop: 03/03/18 18:58 Last Admin: 03/03/18 19:25 Dose: 10 ml - Exam Quality Assessment: No: Supplemental Oxygen General: Alert, Oriented, Cooperative, No Acute Distress Lungs: Normal Respiratory Effort GI/Abdominal Exam: Soft, No Distention Extremities: No Pedal Edema Psy/Mental Status: Alert, Normal Affect - Problem List Review Problem List Initiated/Reviewed/Updated: Yes - My Orders Last 24 Hours: My Active Orders 03/04/18 13:06 Convert IV to Saline Lock [OM.PC] Routine 03/05/18 07:06 Sequential Compression Device [OM.PC] Routine 03/05/18 09:00 Docusate Sodium [Colace] 100 mg PO DAILY 03/06/18 05:00 BASIC METABOLIC PANEL,BMP [CHEM] Timed CBC W/O DIFF,HEMOGRAM [HEME] Timed (1) - Plan Plan:: ASSESSMENT AND PLAN - Complicated urinary tract infection - recent difficulties with urinary retention necessitating Arriola catheter placement and more recently intermittent self catheterization. Clinically doing well. Urine culture not growing a bacteria but he has 4 positive blood cultures with urinary source very likely. -Continue ciprofloxacin -Saline lock IV -Follow-up cultures -Follow-up tick panel results BPH with LUTS/obstruction - had not been a problem until recent surgery. Has Arriola catheter back in place. Was recently evaluated by urology. -Reassess catheter status prior to discharge -Continue tamsulosin -Treat infection as above Maintenance issues - - DVT prophylaxis - ambulatory - GI prophylaxis - not indicated - Nutrition - regular diet - Arriola catheter - placed in the emergency room because of urinary retention, plan to leave in place again today, will readdress prior to discharge Disposition - I would anticipate discharge home after the hospital stay Arturo Hassan M.D.
[2018-03-05] MEDS: Tamsulosin 0.4 MG Cap.ER PO SCH (09:49)
[2018-03-05] MEDS: Docusate Sodium 100 MG Cap PO SCH (09:49)
[2018-03-05] MEDS: Ciprofloxacin in D5W 400 MG in Premix Bag 1 BAG IV SCH ×4 (09:49→22:32)
[2018-03-05] MEDS: atorvaSTATin 20 MG Tab PO SCH (09:49)
[2018-03-06] MEDS: Acetaminophen 325 MG Tab PO PRN (02:49)
[2018-03-06 07:28] VITALS: BP 128/79
[2018-03-06] MEDS: atorvaSTATin 20 MG Tab PO SCH (08:03)
[2018-03-06] MEDS: Tamsulosin 0.4 MG Cap.ER PO SCH (08:03)
[2018-03-06] MEDS: Docusate Sodium 100 MG Cap PO SCH (08:03)
[2018-03-06] MEDS: Ciprofloxacin in D5W 400 MG in Premix Bag 1 BAG IV SCH ×2 (09:05)
--- NOTE | 2018-03-06 11:15 | PCM.DCSUM1 ---
Discharge Summary - Hospital Course Brief History: 68-year-old male with acute urinary retention after inguinal hernia surgery who presented with high fever and shaking chills. He was admitted for management of sepsis secondary to a complicated urinary tract infection. Diagnosis: Stroke: No - Discharge Data Discharge Date: 03/06/18 Discharge Disposition: Home, Self-Care 01 Condition: Good - Discharge Diagnosis/Problem(s) (1) Complicated urinary tract infection SNOMED Code(s): 24100715 ICD Code: N39.0 - URINARY TRACT INFECTION, SITE NOT SPECIFIED Status: Acute (2) Sepsis SNOMED Code(s): 29196668 ICD Code: A41.9 - SEPSIS, UNSPECIFIED ORGANISM Status: Acute Qualifiers: Sepsis type: sepsis due to unspecified organism Qualified Code(s): A41.9 - Sepsis, unspecified organism (3) Acute urinary retention SNOMED Code(s): 855743482 ICD Code: R33.8 - OTHER RETENTION OF URINE Status: Acute - Patient Summary/Data Hospital Course: Don presented to the emergency room with high fever and shaking chills. Workup in the emergency room was suggestive of a urinary tract infection with sepsis with tachycardia and lactic acidosis. A Arriola catheter was placed because of ongoing difficulty with urinary retention. He received IV fluids and was started on ciprofloxacin for antibiotic coverage. Cultures were obtained at the time of admission and it was noted that he was on oral antibiotics prior to presentation. Overnight following admission he did have improvement in his temperature curve as well as his tachycardia. clinically he was feeling a fair amount better. Throughout the day following admission he did have additional temperature spikes which were symptomatic. He also had all 4 bottles of blood culture material returned positive for gram-negative rods. given the bacteremia we did elect to perform a CT scan to rule out abscess or other occult source of infection such as I will nephritis. CT scan showed an enlarged prostate but no other acute findings. We continued his current antibiotic regimen overnight but with ongoing temperature elevations the next day we did elect to add cefepime for additional coverage until his culture returned. Overnight on the third night there were no significant issues. he continued to feel well and his vital signs were stable. On the morning of discharge his urine culture is not growing any specific bacteria. All 4 blood cultures are growing Klebsiella oxytoca. This is sensitive to essentially all antibiotics. given the concern for prostatitis I did elect to continue the ciprofloxacin at the time of discharge. The plan will be for a total of 14 days of therapy with 10 additional days needed after hospital discharge. Prior to hospital discharge we did fill the bladder with sterile water and remove the Arriola catheter. The patient was able to urinate on his own so we have left the catheter out at this time. He does have straight catheter supplies if needed but hopefully with treatment for the presumed infection he will be able to pass urine on his own and did not require additional catheterization. he will continue on tamsulosin after hospital discharge. - Patient Instructions Diet: Regular Diet as Tolerated Activity: As Tolerated Driving: May Drive Today Showering/Bathing: May Shower Notify Provider of: Fever, Increased Pain, Nausea and/or Vomiting Other/Special Instructions: 1. You were in the hospital for management of a urinary tract infection caused by Klebsiella. This infection was caused by urinary retention, presumably from an enlarged and infected prostate. Your condition has been improving with antibiotic therapy. Based on the culture results I recommend 11 additional days of treatment with ciprofloxacin. You should take this medication twice daily and your next dose is due tonight. You have been able to pass urine since the catheter was removed and hopefully this trend continues. You may need to utilize a straight catheter versus an indwelling catheter temporarily if obstruction returns. 2. Continue your usual home medications as previously prescribed. Take it easy for the next few days and then slowly advance your activity towards normal. 3. We did collect blood samples to test for anaplasmosis and Lyme disease. These test results are not yet available and Dr. Rivero or I will contact you when they are available for review. 4. Seek medical attention if you develop fever greater than 101, you have severe abdominal pain, hematuria or urinary retention. - Discharge Plan *PRESCRIPTION DRUG MONITORING PROGRAM REVIEWED*: Not Applicable *COPY OF PRESCRIPTION DRUG MONITORING REPORT IN PATIENT CHANEL: Not Applicable Prescriptions/Med Rec: Ciprofloxacin HCl [Cipro] 500 mg PO BID #22 tablet Home Medications: Home Meds Aspirin [Halfprin] 81 mg PO DAILY 09/09/14 [History] atorvaSTATin [Lipitor] 40 mg PO DAILY 09/09/14 [History] Sildenafil Citrate [Sildenafil] 100 mg PO ASDIRECTED PRN 02/18/18 [History] Zolpidem Tartrate [Ambien] 5 mg PO BEDTIME PRN 02/18/18 [History] Tamsulosin HCl 1 tab PO DAILY 03/03/18 [History] Ciprofloxacin HCl [Cipro] 500 mg PO BID #22 tablet 03/06/18 [Rx] Patient Handouts: Acute Urinary Retention, Male, Ciprofloxacin tablets Referrals: Lul Askew MD [Primary Care Provider] - (follow up as needed if symptoms do not continue to get better or if they get worse) - Discharge Summary/Plan Comment DC Time >30 min.: No - Patient Data Vitals - Most Recent: Last Vital Signs Temp 37.2 C 03/06/18 07:00 Pulse 80 03/06/18 07:00 Resp 18 03/06/18 07:00 BP 128/79 03/06/18 07:00 Pulse Ox 96 03/06/18 07:00 Weight - Most Recent: 83.915 kg I&O - Last 24 hours: Intake & Output 03/05/18 03/06/18 03/06/18 22:59 06:59 14:59 Intake Total 250 770 780 Output Total 500 1650 0 Balance -250 -880 780 Lab Results - Last 24 hrs: Laboratory Results - last 24 hr 03/06/18 03/06/18 Range/Units 04:18 04:18 WBC 6.9 (4.5-11.0) K/uL RBC 4.25 L (4.30-5.90) M/uL Hgb 12.7 (12.0-15.0) g/dL Hct 38.2 L (40.0-54.0) % MCV 90 (80-98) fL MCH 30 (27-31) pg MCHC 33 (32-36) % Plt Count 231 (150-400) K/uL Sodium (140-148) mmol/L Potassium (3.6-5.2) mmol/L Chloride (100-108) mmol/L Carbon Dioxide (21-32) mmol/L Anion Gap (5.0-14.0) mmol/L BUN (7-18) mg/dL Creatinine (0.8-1.3) mg/dL Est Cr Clr Drug Dosing mL/min Estimated GFR (MDRD) (>60) Glucose (74-106) mg/dL Calcium (8.5-10.1) mg/dL GHADA Results - Last 24 hrs: Microbiology 03/03/18 18:54 Aerobic Blood Culture - Final Blood - Venous - Iv Start Klebsiella Oxytoca Anaerobic Blood Culture - Final Klebsiella Oxytoca 03/03/18 19:10 Aerobic Blood Culture - Final Blood - Arm, Right Klebsiella Oxytoca Anaerobic Blood Culture - Final Klebsiella Oxytoca 03/03/18 20:00 Urine Culture - Final Urine, Catheterized NO GROWTH AFTER 2 DAYS Med Orders - Current: Current Medications Acetaminophen (Tylenol) 650 mg PO Q4H PRN PRN Reason: Pain (Mild 1-3)/fever Last Admin: 03/06/18 02:49 Dose: 650 mg Atorvastatin Calcium (Lipitor) 40 mg PO DAILY [facility] Last Admin: 03/06/18 08:03 Dose: 40 mg Docusate Sodium (Colace) 100 mg PO DAILY [facility] Last Admin: 03/06/18 08:03 Dose: 100 mg Ciprofloxacin/Dextrose 400 mg/ (Premix) 200 mls @ 200 mls/hr IV Q12H [facility] Last Admin: 03/06/18 09:05 Dose: 200 mls/hr Ceftazidime 1 gm/ Sodium (Chloride) 50 mls @ 100 mls/hr IV Q8H [facility] Last Admin: 03/06/18 08:29 Dose: 100 mls/hr Sodium Chloride (Saline Flush) 10 ml FLUSH ASDIRECTED PRN PRN Reason: Keep Vein Open Last Admin: 03/03/18 20:04 Dose: 10 ml Tamsulosin HCl (Flomax) 0.4 mg PO DAILY [facility] Last Admin: 03/06/18 08:03 Dose: 0.4 mg Zolpidem Tartrate (Ambien) 5 mg PO BEDTIME PRN PRN Reason: Insomnia Discontinued Medications Acetaminophen (Tylenol Extra Strength) 1,000 mg PO ONETIME ONE Stop: 03/03/18 19:12 Last Admin: 03/03/18 19:24 Dose: 1,000 mg Docusate Sodium (Colace) 100 mg PO DAILY ONE Stop: 03/04/18 15:01 Last Admin: 03/04/18 16:08 Dose: 100 mg Sodium Chloride (Normal Saline) 1,000 mls @ 999 mls/hr IV .BOLUS ONE Stop: 03/03/18 20:11 Last Admin: 03/03/18 19:00 Dose: 999 mls/hr Sodium Chloride (Normal Saline) 1,000 mls @ 250 mls/hr IV ASDIRECTED [facility] Last Admin: 03/04/18 10:38 Dose: 250 mls/hr Ciprofloxacin/Dextrose 400 mg/ (Premix) 200 mls @ 200 mls/hr IV Q12H [facility] Last Admin: 03/03/18 21:59 Dose: 200 mls/hr Sodium Chloride (Normal Saline) 100 mls @ 3 mls/sec IV ASDIRECTED [facility] Stop: 03/04/18 13:00 Last Admin: 03/04/18 12:42 Dose: 3 mls/sec Iopamidol (Isovue-300 (61%)) 100 ml IV . DIRECTED ARSLAN Stop: 03/04/18 13:00 Last Admin: 03/04/18 12:41 Dose: 100 ml Ketorolac Tromethamine (Toradol) 30 mg IVPUSH ONETIME ONE Stop: 03/03/18 19:54 Last Admin: 03/03/18 19:58 Dose: 30 mg Lidocaine HCl (Xylocaine 2% Jelly) Confirm Administered Dose 10 ml .ROUTE .STK- MED ONE Stop: 03/03/18 18:54 Last Admin: 03/03/18 19:51 Dose: Not Given Lidocaine HCl (Xylocaine 2% Jelly) 10 ml MUCMEM ONETIME ONE Stop: 03/03/18 18:58 Last Admin: 03/03/18 19:25 Dose: 10 ml - Exam Quality Assessment: Denies: Supplemental Oxygen General: Reports: Alert, Oriented, Cooperative, No Acute Distress Lungs: Reports: Normal Respiratory Effort GI/Abdominal Exam: Soft, No Distention Extremities: No Pedal Edema Psy/Mental Status: Reports: Alert, Normal Affect
[2018-03-06 12:10] LABS: LYME IGG/IGM AB <0.91 ISR (0.00-0.90)
[2018-03-06 15:16] LABS: HGE IGG TITER Negative (Neg:<1:64); HGE IGM TITER Negative (Neg:<1:20)
== END 2018-03-06 12:57 | disposition home or self-care (01) | DRG 872 ==
LOC: JP.ED 18:29 → JP.MS 21:04
PROVIDERS: ADMIT Family Medicine; ATTEND Internal Medicine
PROC: 0T2BX0Z Change Drainage Device in Bladder, External Approach (ICD-10-PCS; principal; 2018-03-03)
DX: A41.9 Sepsis, unspecified organism (principal); N39.0 Urinary tract infection, site not specified; E78.00 Pure hypercholesterolemia, unspecified; R33.8 Other retention of urine; N40.1 Benign prostatic hyperplasia with lower urinary tract symptoms; B96.89 Other specified bacterial agents as the cause of diseases classified elsewhere; E78.5 Hyperlipidemia, unspecified; Z88.8 Allergy status to other drugs, medicaments and biological substances; Z79.899 Other long term (current) drug therapy; Z79.82 Long term (current) use of aspirin
CPT/HCPCS: 36415; 51702; 71046 ×2; 80053; 81001; 82150; 83605; 83690; 85025; 86618; 86666 ×2; 87040 ×2; 87077; 87086; 87186; 96361; 96374; 99285; A9270; J1885; J7030; J7050; 74177; 74177-26; 80048; 85027; J0713; J0744; Q9967

== ENCOUNTER → 2019-12-30 | Day surgery (SDC) | payer MEDICARE, OTHER ==
[~2019-12-30] MED LIST: Bupivacaine 0.5% 50 ML MDV ONE; Dexamethasone 4 MG/ML SDV ONE; Diphtheria,Pertussis(Acell),Tetanus Vaccine 0.5 ML SDV IM ONE; Glycopyrrolate 0.2 MG/ML 5 ML MDV ONE; Lidocaine 1% with EPINEPHrine 1:100,000 50 ML MDV ONE; Neostigmine Methylsulfate 1 MG/ML 5 ML Syringe ONE; Ondansetron 4 MG/2 ML SDV ONE; Propofol 200 MG/20 ML SDV ONE; Rocuronium 50 MG/5 ML Vial ONE; Succinylcholine 200 MG/10 ML MDV ONE; ceFAZolin 2 GM in Premix Bag 1 BAG IV ONE; ceFAZolin/Dextrose,Iso-Osmotic 2 GM/50 ML Duplex Bag IV ONE; ePHEDrine 50 MG/ML SDV ONE; fentaNYL 250 MCG/5 ML SDV ONE
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
[2019-12-30 16:52] VITALS: BP 123/74; PULSE 97
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
== END ==
LOC: JP.ED 13:51 → JP.SDS 14:19
PROVIDERS: ATTEND Surgery
DX: S51.821A Laceration with foreign body of right forearm, initial encounter (principal); E78.00 Pure hypercholesterolemia, unspecified; I10 Essential (primary) hypertension; Z88.8 Allergy status to other drugs, medicaments and biological substances; Z79.82 Long term (current) use of aspirin; Z79.899 Other long term (current) drug therapy; Z23 Encounter for immunization; W31.89XA Contact with other specified machinery, initial encounter
CPT/HCPCS: 13121; 13122; 90471; 90715; 96365; 99284; J0330; J0690; J1100; J2405; J2704; J3010; J2710; J3490

== ENCOUNTER 2020-10-21 06:31 | Day surgery (SDC) | payer MEDICARE, OTHER ==
[2020-10-21] MEDS ORDERED: Sodium Chloride 0.9% 1,000 ML IV SCH (07:00)
[2020-10-21] MEDS ORDERED: Midazolam 1 MG/ML 2 ML SDV ONE (07:15)
[2020-10-21] MEDS ORDERED: fentaNYL 100 MCG/2 ML SDV ONE (07:15)
[2020-10-21] MEDS ORDERED: Propofol 200 MG/20 ML SDV ONE ×2 (07:15→07:37)
--- NOTE | 2020-10-21 08:37 | OR ---
DATE OF PROCEDURE: 10/21/2020 SURGEON: Flavio Osman MD PROCEDURE: Colonoscopy. FINDINGS: 1. Diverticulosis, extensive, mostly concentrated to sigmoid colon. 2. Cecal polyp, approximately 5 mm, completely removed using cold biopsy forceps. 3. Sessile type polyp at 10 cm, completely removed using hot snare wire device. COMPLICATIONS: None. PRACTICE PHYSICIAN: None. ANESTHESIA: MAC. PREOPERATIVE DIAGNOSIS: Screening colonoscopy. POSTOPERATIVE DIAGNOSIS: Screening colonoscopy. RISKS: Risks, benefits, alternatives, and limitations including but not limited to infection, bleeding, perforation, and false positives and false negatives were explained to the patient who wished to proceed. PROCEDURE IN DETAIL: The patient was placed in left lateral decubitus position. Digital rectal exam was performed without abnormality. Scope was introduced and advanced atraumatically to the ileocecal valve. A photo was taken of this. Within the cecum, the small polyp was identified and completely removed. The scope was moved to be the entire colon. The diverticulosis was described as moderate to extensive with mostly concentrated in the sigmoid colon. No evidence of diverticulitis or bleeding. No abnormalities on retroflexed. In the rectum at approximately 10 cm was a sessile type polyp. This was completely removed using hot snare wire device. No abnormal bleeding was noted on retroflexed. The patient tolerated the procedure well. Greater than 8 minutes was spent removing the scope, and the prep was acceptable. Approximately 90% of luminal surface could be seen. Flavio Osman MD /[id number]
[2020-10-21 09:23] VITALS: BP 140/71; PULSE 86
== END 2020-10-21 09:20 | disposition home or self-care (01) ==
LOC: JP.SDS 06:31
PROVIDERS: ATTEND Surgery
DX: Z12.11 Encounter for screening for malignant neoplasm of colon (principal); D12.0 Benign neoplasm of cecum; D12.8 Benign neoplasm of rectum; K57.30 Diverticulosis of large intestine without perforation or abscess without bleeding; E78.5 Hyperlipidemia, unspecified; I10 Essential (primary) hypertension
CPT/HCPCS: 45380; 45385; J2704; J3010; J7030; J2250

== ENCOUNTER 2021-05-29 12:33 | Emergency (ER) | payer MEDICARE, OTHER ==
[2021-05-29 15:04] VITALS: BP 147/90; PULSE 110
--- NOTE | 2021-05-29 15:47 | EDM.PDOC ---
ED HPI GENERAL MEDICAL PROBLEM - General Chief Complaint: Gastrointestinal Problem Stated Complaint: BLOODY STOOLS Time Seen by Provider: 05/29/21 15:29 Source of Information: Reports: Patient, RN Notes Reviewed History Limitations: Reports: No Limitations - History of Present Illness INITIAL COMMENTS - FREE TEXT/NARRATIVE: 71-year-old gentleman presents emergency department day complaint of bright red blood per rectum, he has had a couple bouncers have bright red blood per rectum he has had some diarrhea he also has a known history of diverticular disease last colonoscopy was 6 months ago. He is asymptomatic does not feel lightheaded is not can a pass out no abdominal pain - Related Data Allergies Allergy/AdvReac Type Severity Reaction Status Date / Time scopolamine Allergy Hallucinati Verified 05/29/21 16:06 ons simvastatin AdvReac Anxiety Verified 05/29/21 16:06 Home Meds: Home Meds Aspirin [Halfprin] 81 mg PO DAILY 09/09/14 [History] atorvaSTATin [Lipitor] 40 mg PO DAILY 09/09/14 [History] Sildenafil Citrate 100 mg PO ASDIRECTED PRN 02/18/18 [History] Zolpidem Tartrate [Ambien] 5 mg PO BEDTIME PRN 02/18/18 [History] Losartan [Cozaar] 50 mg PO DAILY 12/30/19 [History] Acetylcysteine [Nac] 600 mg PO BID 10/05/20 [History] Tamsulosin [Tamsulosin 24 Hr] 0.4 mg PO DAILY 10/05/20 [History] Past Medical History HEENT History: Reports: Hard of Hearing, Impaired Vision Cardiovascular History: Reports: High Cholesterol, Hypertension Gastrointestinal History: Reports: Colon Polyp, Other (See Below) Other Gastrointestinal History: Right inguinal hernia Genitourinary History: Reports: Other (See Below) Other Genitourinary History: large prostate Musculoskeletal History: Reports: Fracture - Infectious Disease History Infectious Disease History: Reports: Chicken Pox, Measles, Mumps - Past Surgical History HEENT Surgical History: Reports: LASIK Cardiovascular Surgical History: Reports: None GI Surgical History: Reports: Colonoscopy, EGD, Hernia, Inguinal Musculoskeletal Surgical History: Reports: None Social & Family History - Family History Family Medical History: No Pertinent Family History - Caffeine Use Caffeine Use: Reports: Coffee ED ROS GENERAL - Review of Systems Review Of Systems: See Below Constitutional: Reports: No Symptoms Respiratory: Reports: No Symptoms Cardiovascular: Reports: No Symptoms GI/Abdominal: Reports: Bloody Stool ED EXAM, GI/ABD - Physical Exam Exam: See Below Exam Limited By: No Limitations General Appearance: Alert, WD/WN, No Apparent Distress Respiratory/Chest: No Respiratory Distress GI/Abdominal Exam: Soft, Non-Tender Course - Vital Signs Last Recorded V/S: Last Vital Signs Temp 98.1 F 05/29/21 15:59 Pulse 110 H 05/29/21 15:59 Resp 16 05/29/21 15:59 BP 147/90 H 05/29/21 15:59 Pulse Ox 100 05/29/21 15:59 - Orders/Labs/Meds Labs: Laboratory Tests 05/29/21 Range/Units 15:59 Hgb 14.0 (12.0-15.0) g/dL Departure - Departure Time of Disposition: 16:32 Disposition: Home, Self-Care 01 Condition: Fair Clinical Impression: Bloody stool - Discharge Information Instructions: Lower Gastrointestinal Bleeding Referrals: Lul Askew MD [Primary Care Provider] - Forms: ED Department Discharge Additional Instructions: Continue with your regular medications, please followup with your primary care provider in 3-5 days if not better, please call return to the emergency department with worsening of symptoms. Sepsis Event Note (ED) - Focused Exam Vital Signs: Vital Signs Temp Pulse Resp BP Pulse Ox 05/29/21 15:59 98.1 F 110 H 16 147/90 H 100 05/29/21 15:01 98.1 F 110 H 16 147/90 H 100 - Assessment/Plan Plan: Assessment Acuity = acute Site and laterality = bloody stool Etiology = unknown could be diverticular could be infectious could be inflammatory Manifestations = none Location of injury = Home Lab values = hemoglobin 14.0 Plan He is going to do watchful waiting he will follow-up with his primary care for further evaluation This note was dictated using [employer] voice recognition software please call with any questions on syntax or grammar.
== END 2021-05-29 16:36 | disposition home or self-care (01) ==
LOC: JP.ED 12:33
DX: K92.1 Melena (principal); E78.00 Pure hypercholesterolemia, unspecified; I10 Essential (primary) hypertension; Z88.8 Allergy status to other drugs, medicaments and biological substances; Z79.82 Long term (current) use of aspirin; Z79.899 Other long term (current) drug therapy
CPT/HCPCS: 36415; 85018; 99284

== ENCOUNTER 2022-07-10 18:28 | Emergency (ER) | payer MEDICARE, OTHER ==
[2022-07-10] MEDS ORDERED: Bacitracin Oint 1 GM U/D Packet TOP ONE (18:30)
[2022-07-10] MEDS ORDERED: Lidocaine 1% 5 ML VIAL INJECT ONE (18:30)
[2022-07-10 18:41] VITALS: BP 131/73; PULSE 74
== END 2022-07-10 19:08 | disposition home or self-care (01) ==
LOC: JP.ED 18:28
DX: S31.119A Laceration without foreign body of abdominal wall, unspecified quadrant without penetration into peritoneal cavity, initial encounter (principal); E78.00 Pure hypercholesterolemia, unspecified; I10 Essential (primary) hypertension; Z88.8 Allergy status to other drugs, medicaments and biological substances; Z79.82 Long term (current) use of aspirin; Z79.899 Other long term (current) drug therapy; W26.0XXA Contact with knife, initial encounter
CPT/HCPCS: 12002; 99282

== ENCOUNTER 2025-04-14 06:13 | Day surgery (SDC) | payer MEDICARE, OTHER ==
[2025-04-14] MEDS: Lactated Ringers 1,000 ML IV SCH (06:53)
[2025-04-14] MEDS ORDERED: fentaNYL 50 MCG/ML SDV ONE (07:21)
[2025-04-14] MEDS ORDERED: Propofol 200 MG/20 ML SDV ONE ×2 (07:21→08:05)
[2025-04-14 10:15] VITALS: BP 137/75; PULSE 68
== END 2025-04-14 10:05 | disposition home or self-care (01) ==
LOC: JP.SDS 06:13
PROVIDERS: ATTEND Surgery
DX: Z12.11 Encounter for screening for malignant neoplasm of colon (principal); D12.5 Benign neoplasm of sigmoid colon; K57.30 Diverticulosis of large intestine without perforation or abscess without bleeding; Z86.0100 Personal history of colon polyps, unspecified
CPT/HCPCS: 00811; 45390; 88305; J2704; J3010; J7120